=== PATIENT | female | born 1960 | race Caucasian/White ===

== ENCOUNTER 2019-08-25 13:08 | Observation (INO) | payer BC, SELFPAY ==
[2019-08-25] VITALS (53 sets, daily range): BP systolic 103–192; BP diastolic 65–165; PULSE 75–106; RESP 12–27; TEMP 36.6–37.6; O2SAT 95–100
--- NOTE | 2019-08-25 13:16 | DI.RAD_ITS ---
EXAM: XR CHEST 2V PA LATERAL CLINICAL HISTORY: Left-sided weakness, QUIÑONES TECHNIQUE: 2D digital imaging was performed. COMPARISON: No exams were available for comparison FINDINGS: MEDIASTINUM: Normal. HEART: Normal. PULMONARY VASCULATURE: Normal. LUNGS: Clear. PLEURAL SPACE: No pleural effusion or pneumothorax. BONE:Normal. OTHER FINDINGS:Normal. IMPRESSION: No acute pulmonary findings. DATA REPOSITORY: RADIATION DOSE DELIVERED:
--- NOTE | 2019-08-25 13:16 | DI.CT_ITS ---
EXAM: CT BRAIN CTA CLINICAL HISTORY: Right-sided head, and neck numbness. TECHNIQUE: Imaging Protocol: Axial CT angiography was performed with multi-slice acquisition and mu lti-planar and/or 3D reconstructions. CONTRAST MATERIAL: Intravenous: Omnipaque 350 Contrast volume:structured data in ml COMPARISON: No exams were available for comparison FINDINGS: CT Head W/O: Ventricles and Extra axial spaces: Normal in size and morphology for the patient's age. Hemorrhage: None. Cerebral parenchyma: Normal. Midline shift: None. Brainstem/Cerebellum: Normal. Calvarium: Normal. Visualized Paranasal sinuses/Mastoids: Clear. Soft Tissues: Unremarkable. CTA Brain W: Internal Carotid Arteries: Petrous: Normal. Cavernous: Normal. Cerebral: Normal. Middle Cerebral Arteries: Right: No aneurysm, occlusion or significant stenosis. Left: No aneurysm, occlusion or significant stenosis. Anterior Cerebral Arteries: Right: No aneurysm, occlusion or significant stenosis. Left: No aneurysm, occlusion or significant stenosis. Posterior cerebral Arteries: Right: No aneurysm, occlusion or significant stenosis. Left: No aneurysm, occlusion or significant stenosis. Vertebral Arteries: Right: No aneurysm, occlusion or significant stenosis. Left: No aneurysm, occlusion or significant stenosis. There is a dominant left vertebral artery. Basilar Artery: No aneurysm, occlusion or significant stenosis. IMPRESSION: 1. Normal CTA examination of the [place]. 2. Unremarkable noncontrast CT Head. 3. Findings were discussed with the emergency department on the date of the examination. RADIATION DOSE DELIVERED: 850.65mGy.cm Total DLP DATA REPOSITORY: All CT scans at this facility are submitted to the National Radiology Data Registry (NRDR) Dose Index Registry (DIR) with the [employer] (ACR). RADIATION OPTIMIZATION: All CT scans at this facility use at least one of these dose optimization te chniques: automated exposure control; mA and/or kV adjustment per patient size (includes targeted exa ms where dose is matched to clinical indication); or iterative reconstruction.
--- NOTE | 2019-08-25 13:29 | ED.GENADUL_ITS ---
Discharge Plan Disposition Patient Disposition: HOME Condition: Stable Discharge Details Chief Complaint: CVA/TIA Clinical Impression: Facial numbness, Hypertension Admit Date/Time: 08/25/19 16:54 Admit Provider: Prerna Truong Attending Provider: Prerna Truong Primary Care Provider: Laura Brink ED Provider: Vero Hull Hospital Course Hospital Course: Ms Baig is a 59 year old female with PMHx of unprovoked DVT in the 80's, no longer on anticoagulation, as well as hypertension (not on medications) and palpitations, who likely also has an underlying anxiety disorder, who was observed on [facility] hospitalist service from 08/25/2019 until 08/26/2019 after having presented to ER with left facial numbness which started during exercises but happened on and off during rest as well. Her BP was 192/85 at the time of presentation, but normalized without intervention. She ruled out for acute coronary syndrome, and her workup ruled out acute CVA. It is plausible that this was hypertensive encephalopathy, but because of the side of the of the symptoms, an outpatient stress test would be prudent and is being ordered on discharge. Lyme /tick panel is pending on discharge for her to follow up with PCP. She is also going home with a cardiac event recorder due to complaint of palpitations. Her telemetry has been negative for arrhythmias for the last 24 hours. Her lipids are at goal. She does have prediabetes, for which she is receiving educational information about dietary management and should follow up with her PCP. She is advised to follow a low salt diet, practice relaxation techniques such as meditation and consider seeking counseling help. She is being referred to [facility] neurology per her request. She ruled out for COVID-19 with a negative nasopharyngeal swab. She is medically stable for discharge home today. Discharge Data Discharge Date/Time-TO BE ENTERED AT DEPARTURE: 08/25/19 19:53 Medical Decision Making <Vero Hull - Last Filed: 08/26/19 17:14> 59-year-old female presents with a chief complaint of left sided numbness and neck numbness which began prior to arrival while gardening. Patient denies headache, no blurry vision, no diplopia, no weakness or numbness in extremities. Denies any chest pain, shortness of breath, cough. On initial exam gross motor is intact, no focal neuro deficits. Patient is hypertensive upon arrival at 192/85 pulse 106, she has noted increased blood pressure over the last few days. Surgical history includes section, colonoscopy. Patient does take daily aspirin, green tea leaf extract multivitamin red yeast ,vitamin D. 1319: EKG was reviewed by [Laura Holden MD] ER attending, no STEMI, sinus rhythm within normal limits, no ectopy sinus tachycardia rate of 99 HI interval 148 QT/QTc 320/411. No old to review. 1457: Patient reevaluation, patient states that when she got up to the bathroom sat back down she did have a little bit of the numbness onto the left side of her head and neck. CT CTA shows no significant vascular stenosis, occlusion, aneurysm, no mass no hemorrhage,. There is a dominant left vertebral artery. At this time patient has been mostly ruled out for CVA, or other brain injury. Neurologist on-call paged here at [facility]. Will run by CT and work-up the case details with neurologist on-call. Plan is to have patient follow-up outpatient with neurology and PCP. Patient does have an appointment on Friday with [facility]. 1525: Have not heard back from neurology, Neuro @ [facility] consulted for follow up and to discuss patients case. 1556: Spoke with Dr. Bowles with neurology at [facility], transfer center states there is no bed availability at this time. Discussed case in details with Dr. Bowles. Will attempt to have patient admitted here speak with our neurologist, and our hospitalist. 1539: Spoke with Racheal Mahoney with neurology who recommends CTA of neck to rule out stenosis and admission to rule out TIA and further observation. Will contact hospitalist. 1613: Spoke with Dr. Truong regarding patient case in details she would like to get CTA of neck results back first before excepting patient, if CTA neck is wi thin normal limits she agrees to accept patient for admission. Patient is currently in diagnostic imaging at this time. PROCEDURE INFORMATION: Exam: CT Angiography Neck With Contrast Exam date and time: 08/25/2019 3:39 PM COMPARISON: CT BRAIN CTA 08/25/2019 1:39 PM FINDINGS: Right common carotid artery: No significant stenosis. No dissection or occlusion. Right internal carotid artery: Atherosclerotic plaques involving the proximal extracranial right internal carotid artery without evidence of hemodynamically significant stenosis (0% stenosis by NASCET criteria). Right external carotid artery: No occlusion or significant stenosis. Right vertebral artery: No significant stenosis. No dissection or occlusion. Left common carotid artery: No significant stenosis. No dissection or occlusion. Left internal carotid artery: Atherosclerotic plaques involving the proximal extracranial left internal carotid artery without evidence of hemodynamically significant stenosis (0% stenosis by NASCET criteria). Left external carotid artery: No occlusion or significant stenosis. Left vertebral artery: No significant stenosis. No dissection or occlusion. Thyroid: Subcentimeter low-density nodules in the thyroid gland, to which no further follow-up is necessary. Bones/joints: No acute fracture. Soft tissues: Unremarkable. IMPRESSION: 1. No occlusion or significant stenosis in the arteries of the neck. 2. Other chronic findings, as above. 1645: Hospitalist paged. CTA neck noted above. Patient is complaining of worsening numbness to the left side of her head and around her mouth into her right eye. 1651: Spoke with Dr. Truong hospitalist who agrees to admit patient for observation. And TIA work-up. <Laura Holden DO - Last Filed: 08/26/19 09:13> Patient was not seen or evaluated by me. She was admitted to the hospitalist. HPI <Vero Hull - Last Filed: 08/26/19 17:14> General Mode of arrival: wheelchair . Date/Time Provider Initiated Documentation: 08/25/19 13:16 . Limitations to Documentation: physical limitation . Information obtained by: patient . HPI Narrative: 59-year-old female presents with a chief complaint of left sided numbness and neck numbness which began prior to arrival while gardening. Patient denies headache, no blurry vision, no diplopia, no weakness or numbness in extremities. Denies any chest pain, shortness of breath, cough. On initial exam gross motor is intact, no focal neuro deficits. Patient is hypertensive upon arrival at 192/85 pulse 106, she has noted increased blood pressure over the last few days. Surgical history includes section, colonoscopy. Patient does take daily aspirin, green tea leaf extract multivitamin red yeast ,vitamin D. Related Data Home Medications Medication Instructions Recorded Confirmed Green Tea 1 ea PO DAILY 07/09/16 08/26/19 aspirin 81 mg PO DAILY tab 07/09/16 08/26/19 multivitamin [Daily Multi-Vitamin] 1 ea PO DAILY 07/09/16 08/26/19 red yeast rice 600 mg PO DAILY 07/09/16 08/26/19 vitamin E 200 unit PO DAILY 07/09/16 08/26/19 Allergies Allergy/AdvReac Type Severity Reaction Status Date / Time No Known Drug Allergies Allergy Unverified 08/25/19 13:18 General Stated Complaint: CVA/TIA SHAWNA: 2 Review of Systems <Vero Hull - Last Filed: 08/26/19 17:14> Narrative: Constitutional: Negative for weight loss, alert and oriented, well groomed, normal body habitus, appears comfortable. HEENT: Denies trauma, blurry vision, nasal discharge, sore throat, trouble swallowing. Chest: Denies chest pain, palpitations, irregular rhythm, positive history of hypertensive episodes over the last 3 days. Respiratory: Denies Shortness of breath, cough, hemoptysis. GI: Denies abdominal pain, nausea, vomiting, diarrhea, constipation. : Denies dysuria, hematuria, flank pain, rectal bleeding. Neuro: Denies dizziness, blurry vision, weakness, syncope, headache . Does report left-sided head and neck numbness. Hematologic: Denies easy bruising, intolerance to heat or cold, hair loss. All systems reviewed & are unremarkable except as noted in HPI and below PFSH <Vero Hull Last Filed: 08/26/19 17:14> Medical History (Updated 08/26/19 @ 16:56 by Prerna Truong MD) DVT (deep venous thrombosis) (Chronic) Hypertension (Chronic) Palpitations (Chronic) Surgical History (Updated 08/25/19 @ 19:30 by Prerna Truong MD) section Colonoscopy - IV Sedation (08/05/16) H/O right knee surgery (Acute) Family History (Updated 08/25/19 @ 19:31 by Prerna Truong MD) Mother Hypertension Breast cancer Uterine cancer Skin cancer DVT (deep venous thrombosis) Father Hypertension Diabetes Other Colon cancer Social History Smoking/Tobacco Use Status: Never Drug use: Never Exam <Vero Hull Last Filed: 08/26/19 17:14> Narrative Exam Narrative: Constitutional: Alert and oriented x3. Appears stated age. Normal body habitus. Head: Normocephalic, no trauma. Eyes: Pupils PERRLA, Red reflex noted, EOM's intact. Eyelids symmetrical without lesions, discharge, or swelling. ENT: Bilateral TM's WNL, External ear normal to inspection, no mastoid TTP, swelling, or erythema, Nasal turbinates WNL, no nasal discharge. Normal den tition, Posterior pharynx WNL, no exudate. Chest: RRR, Normal S1, S2, distal pulses intact. Resp: Lungs clear to auscultation bilaterally, no wheezes, rales, or rhonchi. Musculoskeletal: Normal gait, 5/5 strength to all four extremities. Skin: No suspicious rashes or lesions. Capillary refill less than 2 sec. Neurologic: Cranial nerves II-XII intact. Alert and oriented x 3. See neuro exam below. Hematologic/Lymphatic: No ecchymosis, no lymphadenopathy. Neuro General: patient alert, patient awake, patient oriented x3, tone normal and moves all extremities Cranial Nerves: CN's II-XI intact bilaterally, PERRL, EOM intact bilaterally, no nystagmus, facial strength normal, tongue midline, able to elevate shoulders bilaterally and symmetric palate elevation Cognition: normal cognition Speech: speech normal Motor: muscle tone normal throughout, strength 5/5 throughout and no movement abnormalities noted Course <Vero Hull - Last Filed: 08/26/19 17:14> Vital Signs Vital signs: Vital Signs Temperature 36.7 C 08/25/19 13:14 Pulse 106 H 08/25/19 13:14 Respiratory Rate 19 08/25/19 13:14 Blood Pressure 192/85 H 08/25/19 13:14 Pulse Oximetry 100 08/25/19 13:14 Temperature 36.7 C 08/25/19 13:14 Temperature Source Temporal Artery Scan 08/25/19 13:14 Pulse 106 H 08/25/19 13:14 Respiratory Rate 16 08/25/19 13:22 Respiratory Effort 08/25/19 13:22 Blood Pressure 192/85 H 08/25/19 13:14 Pulse Oximetry 100 08/25/19 13:14 Oxygen Delivery Method Room Air 08/25/19 13:14 Oxygen Flow Rate 0 08/25/19 13:14
[2019-08-25 13:32] LABS: Abs Immature Grans 0.02 k/cumm (0.0-0.09); Absolute Basophil Count 0.05 k/cumm (0.0-0.2); Absolute Eosinophil Count 0.12 k/cumm (0.0-0.7); Absolute Lymphocyte Count 2.85 k/cumm (1.2-3.4); Absolute Monocyte Count 0.64 k/cumm (0.11-0.7); Absolute Neutrophil Count 5.72 k/cumm (1.2-6.7); Basophils % 0.5; Eosinophils % 1.3; HCT 43.3 % (36.0-46.0); HGB 14.5 g/dL (12.0-15.5); Immature Grans % 0.2 %; Lymphocytes % 30.3; Mean Corp. HGB Concentration 33.5 g/dL (32.0-36.0); Mean Corpuscular Hemoglobin 31.6 pg (27.0-33.0); Mean Corpuscular Volume 94.3 fL (80-95); Mean Platelet Volume 9.7 fL (8.0-11.0); Monocytes % 6.8; Neutrophils % 60.9; Platelet Count 356 x1000/uL (130-400); RBC 4.59 m/cumm (4.00-5.20); RBC Distribution Width 12.7 % (11.7-14.6)
[2019-08-25 13:57] LABS: Bilirubin Negative (Negative); Blood Negative (Negative); Clarity Clear (Clear); Glucose Negative (Negative); Ketones Negative (Negative); Leukocyte Esterase Negative (Negative); Nitrite Negative (Negative); Specific Gravity <= 1.005 (1.005-1.025); Urobilinogen 0.2 EU/dL (Up TO 0.2); pH 5.5 (5-8)
[2019-08-25 13:57] LABS: ALT 24 U/L (14-59); AST 20 U/L (15-37); Alkaline Phosphatase 81 U/L (46-116); Anion Gap 11.9 mmol/L (3-11); BUN 15 mg/dL (7-18); Bilirubin, Total 0.5 mg/dL (0.2-1.0); CO2 25.1 mmol/L (21.0-32.0); CREATININE 0.97 mg/dL (0.55-1.02); Calcium 9.5 mg/dL (8.5-10.1); Chloride 99 mmol/L (98-107); Estimated GFR 58.78 (mL/min/1.73m2); Glucose 167 mg/dL (74-106); Magnesium 1.9 mg/dL (1.8-2.4); Potassium 3.2 mmol/L (3.5-5.1); Sodium 136 mmol/L (136-145); Total Protein 8.2 g/dL (6.4-8.2)
[2019-08-25 14:00] LABS: Troponin I < 0.05 ng/mL (<0.06)
[2019-08-25] MEDS: Omnipaque 350 MG/ML 100 ML BTL IV ×2 (14:50→16:26)
[2019-08-25] MEDS: Normal Saline 1,000 ML 1000 ML IV (15:24)
[2019-08-25] MEDS: Normal Saline Flush 10 ML SYR IVP ×2 (15:24→16:27)
[2019-08-25 15:45] LABS: TSH 1.19 uIU/mL (0.36-3.74)
--- NOTE | 2019-08-25 16:15 | DI.CT_ITS ---
EXAM: CT CAROTID NECK CTA CLINICAL HISTORY: R/O stenosis, left sided numbness TECHNIQUE: Imaging Protocol: Axial CT angiography was performed with multi-slice acquisition and mu lti-planar and/or 3D reconstructions. CONTRAST MATERIAL: Intravenous: Omnipaque 350 Contrast volume:85 mL COMPARISON: No exams were available for comparison FINDINGS: CTA Neck W: Common Carotid: Right: No aneurysm, occlusion or significant stenosis. Left: No aneurysm, occlusion or significant stenosis. External Carotid: Right: No aneurysm, occlusion or significant stenosis. Left: No aneurysm, occlusion or significant stenosis. Internal Carotid: Right: No aneurysm, occlusion or significant stenosis. Mild atherosclerosis in the proximal internal carotid artery. Left: No aneurysm, occlusion or significant stenosis. Mild atherosclerosis in the proximal internal carotid artery. Vertebral Artery: Right: No aneurysm, occlusion or significant stenosis. Left: No aneurysm, occlusion or significant stenosis. Lung Apices: Normal. Bones: Mild degenerative changes in the cervical spine. Soft Tissues: Normal. IMPRESSION: 1. No occlusion or significant stenosis in the arteries of the neck. RADIATION DOSE DELIVERED: 254.33mGy.cm Total DLP 254.33mGy.cm Total DLP DATA REPOSITORY: All CT scans at this facility are submitted to the National Radiology Data Registry (NRDR) Dose Index Registry (DIR) with the [employer] (ACR). RADIATION OPTIMIZATION: All CT scans at this facility use at least one of these dose optimization te chniques: automated exposure control; mA and/or kV adjustment per patient size (includes targeted exa ms where dose is matched to clinical indication); or iterative reconstruction.
[2019-08-25] MEDS: Normal Saline - Diluent 50 ML VIAL IV (16:27)
[2019-08-25] MEDS: Clopidogrel 300 MG TAB PO (16:38)
--- NOTE | 2019-08-25 16:39 | DI.VRAD_ITS ---
PROCEDURE INFORMATION: Exam: CT Angiography Neck With Contrast Exam date and time: 08/25/2019 3:39 PM Age: 59 years old Clinical indication: Other: R/O stenosis TECHNIQUE: Imaging protocol: Computed tomography angiography of the neck with intravenous contrast. 3D rendering: MIP and/or 3D reconstructed images were created by the technologist. Radiation optimization: All CT scans at this facility use at least one of these dose optimization techniques: automated exposure control; mA and/or kV adjustment per patient size (includes targeted exams where dose is matched to clinical indication); or iterative reconstruction. Contrast material: [id number]; Contrast volume: 85 ml; Contrast route: IV; COMPARISON: CT BRAIN CTA 08/25/2019 1:39 PM FINDINGS: Right common carotid artery: No significant stenosis. No dissection or occlusion. Right internal carotid artery: Atherosclerotic plaques involving the proximal extracranial right internal carotid artery without evidence of hemodynamically significant stenosis (0% stenosis by NASCET criteria). Right external carotid artery: No occlusion or significant stenosis. Right vertebral artery: No significant stenosis. No dissection or occlusion. Left common carotid artery: No significant stenosis. No dissection or occlusion. Left internal carotid artery: Atherosclerotic plaques involving the proximal extracranial left internal carotid artery without evidence of hemodynamically significant stenosis (0% stenosis by NASCET criteria). Left external carotid artery: No occlusion or significant stenosis. Left vertebral artery: No significant stenosis. No dissection or occlusion. Thyroid: Subcentimeter low-density nodules in the thyroid gland, to which no further follow-up is necessary. Bones/joints: No acute fracture. Soft tissues: Unremarkable. IMPRESSION: 1. No occlusion or significant stenosis in the arteries of the neck. 2. Other chronic findings, as above. REFERENCES: NASCET CRITERIA. The degree of internal carotid artery stenosis is based on NASCET criteria. Normal is no stenosis. Mild is less than 50% stenosis. Moderate is 50-69% stenosis. Severe is 70% to 99% stenosis. Total occlusion is no detectable patent lumen. Dictated and Authenticated by: Rob Hunter MD. Ordering:JOSE ALEJANDRO Pham MD
[2019-08-25] MEDS: LORazepam 0.5 MG TAB PO (16:50)
[2019-08-25 17:50] LABS: Troponin I < 0.05 ng/mL (<0.06)
--- NOTE | 2019-08-25 18:19 | W.PM.HP.N ---
Date of service: 08/25/19 Assessment and Plan Assessment and plan (1) Facial numbness: Status: Acute Assessment and plan: CVA is a possibility as is hypertensive encephalopathy, atypical migraine, anxiety, complex partial sz. Obtain MRI of the brain in am as well as echo. Monitor on tele with neurochecks. Continue plavix. Check lipids. Permissive hypertension tonight. (2) Hypertensive urgency: Status: Acute Assessment and plan: Permissive hypertension tonight with prn IV lopressor being written for SBP>190. (3) Hypokalemia: Status: Acute Assessment and plan: Replete and recheck in am (4) Anxiety: Status: Chronic Assessment and plan: May be contributing to hypertension. Would not initiate the patient on any anxiolytics at this point unless she is in real distress, but may require ativan for MRI tomorrow. (5) Palpitations: Status: Acute Assessment and plan: While anxiety could be the explanation, we will monitor the patient on telemetry. I think she is interested in having a stress test as outpatient, which she can discuss with her PCP. I reassured her that we will check her cholesterol and, if needed, would go home with a heart monitor. (6) DVT prophylaxis: Status: Acute Assessment and plan: lovenox (7) Discharge planning issues: Status: Acute Assessment and plan: Full code Anticipate discharge home tomorrow History of Present Illness History of Present Illness Chief Complaint: facial numbness Narrative: Ms Baig is a 59 year old female with PMHx of HTN, DVT in 1979 (no longer on anticoagulation), and palpitations, who presented with L-sided head numbness since 12 pm today while vacuuming. It's been on and off ever since. Denies neck symptoms, UE/LE's. There may also be tingling associated with the sensation - the patient is not sure. She does not have a headache. The patient also felt dizzy and had palpitations when this first started. She had palpitations in the CT scan which she said really scared her. She states that she had to wear a heart monitor in the past for her palpitations. In the ED, she had a negative CT/CTA of the brain. CTA of the neck revealed no hemodynamically significant stenosis. The patient was loaded with plavix on recommendation of neurology, and we were asked to take over the care for further monitoring. While in ED, the patient was hypertensive to 192/85 with BP's of 179/74 prior to coming to medical surgical floor. The patient initially requested transfer to [facility], where there were no beds. She also requested transfer to [facility] initially, but now agrees to stay here for the workup and requests that she be transferred if necessary. The patient denies contact with anyone with COVID-19, though she endorses feeling short of breath and lightheaded whenever she wears a mask. Review of Systems Narrative: 12 systems reviewed. Pertinent positives and negatives are as per HPI. [facility] Medical History (Updated 08/25/19 @ 19:34 by Prerna Truong MD) DVT (deep venous thrombosis) (Chronic) Hypertension (Chronic) Palpitations (Acute) Surgical History (Updated 08/25/19 @ 19:30 by Prerna Truong MD) section Colonoscopy - IV Sedation (08/05/16) H/O right knee surgery (Acute) Family History (Updated 08/25/19 @ 19:31 by Prerna Truong MD) Mother Hypertension Breast cancer Uterine cancer Skin cancer DVT (deep venous thrombosis) Father Hypertension Diabetes Other Colon cancer Social History Smoking/Tobacco Use Status: Never Drug use: Never Meds Home Medications and Allergies Home Medications Medication Instructions Recorded Confirmed Type aspirin 81 mg PO DAILY tab 07/09/16 08/05/16 History green tea leaf extract [Green Tea] 1 ea PO DAILY 07/09/16 08/05/16 History multivitamin [Daily Multi-Vitamin] 1 ea PO DAILY 07/09/16 08/05/16 History red yeast rice 600 mg PO DAILY 07/09/16 08/05/16 History vitamin E 200 unit PO DAILY 07/09/16 08/05/16 History Allergies Allergy/AdvReac Type Severity Reaction Status Date / Time No Known Drug Allergies Allergy Unverified 08/25/19 13:18 Exam Narrative Exam Narrative: General: Well nourished, well developed Anxious middle-aged female, A&Ox3, pleasant, Neurological: A&OX3, CN II - XII intact, no focal deficits, sensation intact, +1 DTRs B, 5/5 strenght throughout Psychiatric: anxious Skin: visible skin intact HEENT: Atraumatic, normocephalic, EOMI, dry MM, clear oropharynx Cardiovascular: RRR, no m/r/g, not tachycardic Lungs: CTAB Gastrointestinal: soft, nontender, nondistended Genitourinary: deferred Extremities: no e/c/c BLE's Results Imaging Additional studies: CXR; No acute pulmonary findings. Head CT/CTA: 1. Normal CTA examination of the [place] of [place]. 2. Unremarkable noncontrast CT Head. CTA neck: 1. No occlusion or significant stenosis in the arteries of the neck. 2. Other chronic findings, as above. EKG: ST, HR 99, no acute ischemia, nonspecific ST-T changes throughout Labs Result diagrams: 08/25/19 13:20 08/25/19 13:20 Labs: Laboratory Results - last 24 hr 08/25/19 08/25/19 08/25/19 13:20 13:20 13:20 WBC 9.40 RBC 4.59 Hgb 14.5 Hct 43.3 MCV 94.3 MCH 31.6 MCHC 33.5 RDW 12.7 Plt Count 356 MPV 9.7 Immature Gran % 0.2 Neutrophils % 60.9 Lymphocytes % 30.3 Monocytes % 6.8 Eosinophils % 1.3 Basophils % 0.5 Absolute Neutrophils 5.72 Absolute Lymphocytes 2.85 Absolute Monocytes 0.64 Absolute Eosinophils 0.12 Absolute Basophils 0.05 Sodium 136 Potassium 3.2 L Chloride 99 Carbon Dioxide 25.1 Anion Gap 11.9 H BUN 15 Creatinine 0.97 Estimated GFR/1.73 m2 58.78 Glucose 167 H Calcium 9.5 Magnesium 1.9 Total Bilirubin 0.5 AST 20 ALT 24 Alkaline Phosphatase 81 Troponin I < 0.05 Total Protein 8.2 Albumin 4.0 TSH 1.19 Urine Color Urine Clarity Urine pH Ur Specific Fay Urine Protein Urine Ketones Urine Blood Urine Nitrite Urine Bilirubin Urine Urobilinogen Ur Leukocyte Esterase Urine Glucose 08/25/19 08/25/19 08/25/19 13:30 16:16 17:20 WBC RBC Hgb Hct MCV MCH MCHC RDW Plt Count MPV Immature Gran % Neutrophils % Lymphocytes % Monocytes % Eosinophils % Basophils % Absolute Neutrophils Absolute Lymphocytes Absolute Monocytes Absolute Eosinophils Absolute Basophils Sodium Potassium Chloride Carbon Dioxide Anion Gap BUN Creatinine Estimated GFR/1.73 m2 Glucose Calcium Magnesium Total Bilirubin AST ALT Alkaline Phosphatase Troponin I Cancelled < 0.05 Total Protein Albumin TSH Urine Color Yellow Urine Clarity Clear Urine pH 5.5 Ur Specific Fay <= 1.005 Urine Protein Negative Urine Ketones Negative Urine Blood Negative Urine Nitrite Negative Urine Bilirubin Negative Urine Urobilinogen 0.2 Ur Leukocyte Esterase Negative Urine Glucose Negative Last Vital Signs Temp 36.7 C 08/25/19 16:30 Pulse 93 H 08/25/19 16:49 Resp 16 08/25/19 16:49 BP 179/74 H 08/25/19 16:49 Pulse Ox 100 08/25/19 16:49 COVID-19 Screening In the past 14 days, have you traveled outside of [place] or [place]?: NO Had IN PERSON contact w/suspected or confirmed C-19 person: No
[2019-08-25] MEDS: Potassium Chloride 20 MEQ TABCR 40 MEQ PO (19:19)
[2019-08-25] MEDS: Enoxaparin 40 MG/0.4 ML SYR SC (20:36)
[2019-08-25] MEDS: Atorvastatin 40 MG TAB PO (20:36)
[2019-08-25] MEDS: Normal Saline 1,000 ML 50 ML IV (20:37)
[2019-08-26 03:31] VITALS: BP 130/77; PULSE 75; RESP 19; TEMP 37.1; O2SAT 98
[2019-08-26 07:08] LABS: Abs Immature Grans 0.01 k/cumm (0.0-0.09); Absolute Basophil Count 0.04 k/cumm (0.0-0.2); Absolute Eosinophil Count 0.14 k/cumm (0.0-0.7); Absolute Monocyte Count 0.67 k/cumm (0.11-0.7); Absolute Neutrophil Count 5.26 k/cumm (1.2-6.7); Basophils % 0.5; Eosinophils % 1.7; HCT 40.7 % (36.0-46.0); HGB 13.2 g/dL (12.0-15.5); Immature Grans % 0.1 %; Lymphocytes % 27.3; Mean Corp. HGB Concentration 32.4 g/dL (32.0-36.0); Mean Corpuscular Hemoglobin 30.9 pg (27.0-33.0); Mean Corpuscular Volume 95.3 fL (80-95); Mean Platelet Volume 9.8 fL (8.0-11.0); Neutrophils % 62.4; Platelet Count 334 x1000/uL (130-400); RBC 4.27 m/cumm (4.00-5.20); White Blood Cell Count 8.42 k/cumm (4.4-10.8)
[2019-08-26 07:10] VITALS: BP 121/66; PULSE 81; RESP 18; TEMP 36.7; O2SAT 98
[2019-08-26 07:51] LABS: Anion Gap 8.1 mmol/L (3-11); BUN 14 mg/dL (7-18); CO2 25.9 mmol/L (21.0-32.0); CREATININE 0.84 mg/dL (0.55-1.02); Calcium 9.1 mg/dL (8.5-10.1); Calculated LDL 77 mg/dL (<100); Chloride 109 mmol/L (98-107); Cholesterol 149 mg/dL (<200); Glucose 97 mg/dL (74-106); HDL Cholesterol 62 mg/dL (40-60); Magnesium 1.9 mg/dL (1.8-2.4); Potassium 3.8 mmol/L (3.5-5.1); Sodium 143 mmol/L (136-145); Triglyceride 54 mg/dL (<150); Vitamin B12 1854 pg/mL (193-986)
--- NOTE | 2019-08-26 08:00 | DI.US_ITS ---
APPROVED REPORT EXAM: Comprehensive 2D, Doppler, and color-flow Echocardiogram Patient Location: In-Patient Room/Bed: 230 Indications: Suspected CVA Other Information Study Quality: Good Conclusion Left Ventricle : The left ventricle is normal size. The left ventricular systolic function is normal. The left ventricular ejection fraction is within the normal range. There is normal left ventricular wall thickness. There is normal LV segmental wall motion. The left ventricular diastolic function is normal. LVEF is 55%. Right Ventricle : The right ventricle is normal size. The right ventricular systolic function is norm al. The RVSP is 20.2 mmHg Atria : The left atrium size is normal. The right atrium size is normal. Valves: There are no hemodynamically significant valvular lesions. Please see remainder of study for additional details. There is no prior echocardiogram available for comparison. Wall motion Left Ventricle The left ventricle is normal size. The left ventricular systolic function is normal. The left ventric ular ejection fraction is within the normal range. There is normal left ventricular wall thickness. T here is normal LV segmental wall motion. The left ventricular diastolic function is normal. There is no ventricular septal defect visualized. LVEF is 55%. Right Ventricle The right ventricle is normal size. The right ventricular systolic function is normal. The RVSP is 20 .2 mmHg Atria The left atrium size is normal. The right atrium size is normal. The interatrial septum is intact wit h no evidence for an atrial septal defect. Aortic Valve The Aortic valve is sclerotic. Aortic valve is trileaflet. There is no aortic valvular stenosis. No a ortic regurgitation is present. Mitral Valve There is mitral annular calcification. No evidence of mitral valve stenosis. Trace to mild mitral reg urgitation. Tricuspid Valve The tricuspid valve is normal in structure. There is no tricuspid valve stenosis. Mild tricuspid regu rgitation. Pulmonic Valve The pulmonary valve is normal in structure. There is no pulmonic valvular stenosis. There is no pulmo uday valvular regurgitation. Great Vessels The aortic root is normal in size. The ascending aorta is normal in size. IVC is normal in size and c ollapses >50% with inspiration. Pericardium Trivial pericardial effusion. 2D Dimensions IVSD d PLAX 0.98 cm F: 0.6-1.0 LV Vol A2C d MOD 71.5 mL LVPW d PLAX 0.94 cm F: 0.6 - 1.0 LV Vol A4C d MOD 72.1 mL LVID d PLAX 4.23 cm F: 3.8 - 5.2 LA vol/ BSA A2C s A-L 25.7 mL/m2 LVDs 2.45 cm F: 2.2 - 3.5 LA vol/ BSA A4C s A-L 18.0 mL/m2 Ao Root d 2.50 cm F: 2.7 - 3.3 LA Vol/ BSA Biplane s A-L 21.6 mL/m2 RA Area A4C 12.13 cm2 LA Area A4C s MOD 12.94 cm2 RA Vol/ BSA A4C s A-L 16.2 mL/m2 LA Area A2C s MOD 15.56 cm2 Ao Asc Diam d 2.74 cm F: 2.3 - 3.1 LV EF A4C MOD 54.6 % LV EF Teichholz 72.4 % LV EF A2C MOD 54.9 % LVEF (Linda's) 53.90 % F: 54 - 74 LV EF Biplane MOD 53.9 % LV Volume 58.16 mL F: 46 - 106 SV 39.13 mL LV Volume Index 35.03 mL/m2 F: 29 - 61 SV Index 23.57 mL/m2 LV Vol Biplane MOD 72.6 mL FS 41.20 % M-Mode TAPSE 1.97 cm (M/F) >1.7 LV Diastology MV E' medial 0.095 (>0.07 m/s) E/A Ratio 1.1 LV E/e MED 7.50 (<14) MV E Vmax 0.72 (0.4-1.3 m/s) MV E' lateral 0.103 (>0.1 m/s) MV A Vmax 0.65 (0.4-1.3 m/s) LV E/e LAT 6.95 (<14) MV E/A Ratio 1.06 MV E/E' medial 7.50 MV E/E' lateral 6.96 Aortic Valve LVOT Vmax 1.04 m/s LVOT Mean Michael. 0.62 m/s LVOT Peak Grad 4.3 mmHg LVOT Mean Grad 1.9 mmHg LVOT VTI 0.201 m AoV Vmax 1.52 m/s Velocity Ratio 0.68 AoV Mean Michael. 1.08 m/s AoV Peak Grad 9.2 mmHg AoV Mean Grad 5.2 mmHg AoV VTI 0.278 m Mitral Valve MV DT 189 (160-240 msec) MV PHT 55 msec MV Area PHT 4.01 cm2 Pulmonary Valve PV Vmax 0.75 (0.5-1.5 m/s) RVOT Peak Gr. 1.55 mmHg PV Peak Grad 2.3 mmHg RVOT Mean Gr. 1.00 mmHg PV Mean Grad 1.6 mmHg RVOT VTI 0.137 m PV VTI 0.155 m RVOT Vmax 0.62 m/s Tricuspid Valve TR Peak Grad 17.1 mmHg TR Vmax 2.07 m/s RA Pressure 3.00 mmHg RVSP (TR) 20.2 mmHg
--- NOTE | 2019-08-26 08:00 | DI.MRI_ITS ---
EXAM: MR BRAIN WO CLINICAL HISTORY: suspected CVA, LT SIDED NUMBNESS TECHNIQUE: Multiplanar multisequence MRI of the brain was performed. COMPARISON: CT CT BRAIN CTA from 08/25/2019 FINDINGS: VENTRICLES AND EXTRA AXIAL SPACES: Normal in size and morphology for the patient's age. MIDLINE SHIFT: None. CEREBRAL PARENCHYMA: No focus of restricted diffusion to suggest acute infarct. No space-occupying le kim identified. Scattered hyperintense foci in the white matter on the T2 and FLAIR images most sugg estive of early small vessel ischemic disease. HEMORRHAGE: None. BRAINSTEM/CEREBELLUM: Normal. CALVARIUM: Normal. VISUALIZED PARANASAL SINUSES/MASTOIDS:Clear. PITUITARY GLAND: Unremarkable. OTHER FINDINGS: None. IMPRESSION: No evidence to suggest an acute infarct. DATA REPOSITORY:
--- NOTE | 2019-08-26 08:00 | DI.MRI_ITS ---
EXAM: MR ANGIO BRAIN WO CLINICAL HISTORY: suspected CVA, LT SIDED NUMBNESS. TECHNIQUE: Multiplanar multisequence MRA of the brain was performed. COMPARISON: CT angiography of the head and neck 08/25/2019. FINDINGS: Carotid Arteries: No aneurysm, occlusion or significant stenosis. Anterior Cerebral Arteries: Right: No aneurysm, occlusion or significant stenosis. Left: No aneurysm, occlusion or significant stenosis. Middle Cerebral Arteries: Right: No aneurysm, occlusion or significant stenosis. Left: No aneurysm, occlusion or significant stenosis. Posterior Cerebral Arteries: Right: No aneurysm, occlusion or significant stenosis. Arises from the posterior communicating arter y. Left: No aneurysm, occlusion or significant stenosis. Arises from the posterior communicating artery . Vertebral Arteries: Right: No aneurysm, occlusion or significant stenosis. Left: No aneurysm, occlusion or significant stenosis. There is a dominant left vertebral artery. Basilar Artery: No aneurysm, occlusion or significant stenosis. IMPRESSION: Normal MRA examination of the [place] of [place]. DATA REPOSITORY:
--- NOTE | 2019-08-26 08:45 | PDOC.CMIN ---
- If Service Date Differs Date of service: 08/26/19 Time of Service: 08:46 Care Management Initial Assess REASON FOR HOSPITALIZATION:: facial numbness PAST MEDICAL HISTORY/PAST SURGICAL HISTORY:: Medical History (Updated 08/25/19 @ 19:34 by Prerna Truong MD). DVT (deep venous thrombosis) (Chronic). Hypertension (Chronic). Palpitations (Acute). Surgical History (Updated 08/25/19 @ 19:30 by Prerna Truong MD). section. Colonoscopy - IV Sedation (08/05/16). H/O right knee surgery (Acute) PREVIOUS FUNCTIONAL STATUS/SOCIAL/FAMILY SUPPORTS:: Waleska lives with her in a single family home in [place], [place]. They have 2 adult sons who both live out of [facility]. 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 She is independent with ADLs, driving and all activities. She does not receive any community services and does not need or use any assistive devices. CURRENT FUNCTIONAL STATUS:: Waleska was sitting up in bed when CM met with her. She has been out of the room most of the day having testing done.She described the symptoms that she experienced yesterday that brought her to the hospital. She stated that she has never had anything like it before, although she has had some intermittent hypertensiopn. Today her vital signs are stable with a blood pressure of 126/76 and a heartrate in the 80's. She stated that she feels much better than yesterday, although she did have some numbness on the left side of her head again this morning. ADVANCE DIRECTIVES:: None on file. Provided with a blank copy of the [facility] AD forms by CM. Has patient been provided with info about the portal/API?: Yes Did the patient sign up for the portal?: No (considering) CODE STATUS:: Full Code INSURANCE COVERAGE / FINANCIAL ISSUES:: [employer] CURRENT HOME/COMMUNITY SERVICES/EQUIPMENT:: NONE PRIMARY CARE PHYSICIAN:: Laura Brink POTENTIAL DISCHARGE NEEDS:: Follow up with PCP and discharge plan of care PATIENT/FAMILY EDUCATION NEEDS:: Discharge plan, limitations, follow up plan, Ask Me Three TRANSPORTATION:: via [employer] vehicle with family PLAN:: Waleska will likely be discharged home with no services. She will follow up with her PCP and discharge plan of care and transport with her . CM will continue to support patient, family and discharge considerations.
[2019-08-26] MEDS: Clopidogrel 75 MG TAB PO (09:10)
[2019-08-26] MEDS: Multivitamin TAB 1 TAB PO (09:11)
[2019-08-26] MEDS: LORazepam 2 MG/ML VIAL 1 MG IVP (10:02)
[2019-08-26] MEDS: Normal Saline Flush 10 ML SYR IVP (10:03)
[2019-08-26 14:00] VITALS: BP 126/83; PULSE 84; RESP 18; TEMP 36.8; O2SAT 96
[2019-08-26 14:14] LABS: COVID-19 RT-PCR UVMMC Result Negative (Negative)
--- NOTE | 2019-08-26 16:41 | W.PM.DS.N ---
Date of service: 08/26/19 Time of Service: 16:41 DS: Diagnosis Discharge Diagnosis (1) Hypertensive encephalopathy: Status: Resolved (2) Facial numbness: Status: Acute Asessment and Plan: CVA ruled out As the symptoms are on the left, an outpatient stress test is being ordered. (3) Hypertensive urgency: Status: Resolved Asessment and Plan: Resolved without medications (4) Hypokalemia: Status: Resolved (5) Anxiety: Status: Chronic (6) Palpitations: Status: Chronic Asessment and Plan: being discharged with a cardiac event recorder (7) Prediabetes: Status: Chronic Asessment and Plan: new diagnosis. 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 Her BP was 192/85 at the time of presentation, but normalized without intervention. She ruled out for acute coronary syndrome, and her workup ruled out acute CVA. It is plausible that this was hypertensive encephalopathy, but because of the side of the of the symptoms, an outpatient stress test would be prudent and is being ordered on discharge. Lyme /tick panel is pending on discharge for her to follow up with PCP. She is also going home with a cardiac event recorder due to complaint of palpitations. Her telemetry has been negative for arrhythmias for the last 24 hours. Her lipids are at goal. She does have prediabetes, for which she is receiving educational information about dietary management and should follow up with her PCP. She is advised to follow a low salt diet, practice relaxation techniques such as meditation and consider seeking counseling help. She is being referred to [facility] neurology per her request. She ruled out for COVID-19 with a negative nasopharyngeal swab. She is medically stable for discharge home today. Home Meds and New Rx's Prescriptions: Continued multivitamin [Daily Multi-Vitamin] 1 EACH tablet 1 ea PO DAILY RF: 0 aspirin 81 MG tablet,delayed release (DR/EC) 81 mg PO DAILY RF: 0 Green Tea 1 EACH capsule 1 ea PO DAILY RF: 0 red yeast rice 600 MG capsule 600 mg PO DAILY RF: 0 vitamin E 200 UNIT capsule 200 unit PO DAILY RF: 0 Discharge Instructions Instructions: Basic Carbohydrate Counting (DC), Meal Planning with Diabetes Exchanges (DC), Chronic Hypertension (DC), Low-Sodium Diet (GEN), Prediabetes (DC), Cardiac Stress Test (DC) Additional Instructions: Return to the hospital with any fever, bleeding, chest pain, shortness of breath, or any new neurological symptoms. Follow up with your PCP as scheduled. Follow up with [facility] neurology. Follow up for your stress test. Take your blood pressures daily and keep a log. Contact your PCP if you notice systolic (top) blood pressure number of 180 or greater. Practice relaxation techniques, such as meditation. Avoid caffeine. You tested negative for COVID-19. Make sure to wear a mask when/if you are not going to be able to maintain 6 foot distance in public spaces and wash your hands frequently. Stand Alone Forms: Nursing Discharge Form Referrals: NEUROLOGY,[facility] [OTHER] - (Please call to follow up) Laura Brink [Primary Care Provider] - (Please call to follow up) Activity:: Activity as Tolerated Equipment/Supplies:: No Equipment Needed Diet:: Diabetic low sodium Discharge Orders Discharge Orders: Discharge Order (Routine); Ordered 08/26/19 Ordered By: Prerna Truong Other Ambulatory Orders: NM MPI rest & stress grp (Routine) Timeframe: 2 Weeks Facility: [facility] - Location: CARDIAC LAB Ordered By: Prerna Truong Cardiac Event Recorder (Outpt) (ONCE) Timeframe: [id number] Facility: [facility] - Location: Respiratory Therapy Ordered By: Prerna A Alexi DS: Summary Status at Discharge Functional status at discharge: independent ambulation Overall status at discharge: patient is progressing back to baseline Mental Status: mental status grossly normal Speech and Movement: speech and movement normal Mood: congruent mood and anxious mood Affect: normal affect Exam Narrative Exam Narrative: General: Well nourished, well developed Anxious middle-aged female, A&Ox3, pleasant, Neurological: A&OX3, CN II - XII intact, no focal deficits, sensation intact on exam, +1 DTRs B, 5/5 strength throughout Psychiatric: anxious Skin: visible skin intact HEENT: Atraumatic, normocephalic, EOMI, dry MM, clear oropharynx Cardiovascular: RRR, no m/r/g, not tachycardic Lungs: CTAB Gastrointestinal: soft, nontender, nondistended Extremities: no e/c/c BLE's Psych Mental Status: mental status grossly normal Speech and Movement: speech and movement normal Mood: congruent mood and anxious mood Affect: normal affect DS: Data Vitals/I&O Vitals and I&O: Vital Signs Temperature 36.8 C 08/26/19 14:00 Temperature Source Tympanic 08/26/19 14:00 Pulse 84 08/26/19 14:00 Pulse Rhythm Regular 08/26/19 09:06 Pulse 85 08/25/19 19:30 Respiratory Rate 18 08/26/19 14:00 Respiratory Effort Non-Labored 08/26/19 09:06 Respiratory Depth Normal 08/26/19 09:06 Respiratory Pattern Normal 08/26/19 09:06 Blood Pressure 126/83 08/26/19 14:00 Blood Pressure Mean 100 08/25/19 19:16 Pulse Oximetry 96 08/26/19 14:00 Oxygen Delivery Method Room Air 08/26/19 14:00 Oxygen Flow Rate 0 08/26/19 14:00 Pain Level 0 08/26/19 14:00 Comment 08/25/19 20:09 Intake & Output 08/25/19 08/26/19 08/26/19 23:59 11:59 23:59 Intake Total 1000 / 1000 660 / 1140 480 / 1140 Output Total 900 / 900 3150 / 3150 Balance 100 / 100 -2489 Weight 62.1 kg 63.3 kg Intake: IV 1000 / 1000 Oral 660 / 1140 480 / 1140 Output: Urine 900 / 900 3150 / 3150 Other: Urine Color Yellow Yellow Urine Appearance Clear Clear Urine Odor Normal Voiding Methods Toilet Data Completed and Pending Completed studies during hospitalization [Text1]: CXR 08/25/2019: No acute pulmonary findings. CT/CTA head 08/25/2019: 1. Normal CTA examination of the [place]. 2. Unremarkable noncontrast CT Head. CTA neck 08/25/2019: 1. No occlusion or significant stenosis in the arteries of the neck. MRI brain: No evidence to suggest an acute infarct. MRA brain: Normal MRA examination of the [place]. Echo: Left Ventricle : The left ventricle is normal size. The left ventricular systolic function is normal. The left ventricular ejection fraction is within the normal range. There is normal left ventricular wall thickness. There is normal LV segmental wall motion. The left ventricular diastolic function is normal. LVEF is 55%. Right Ventricle : The right ventricle is normal size. The right ventricular systolic function is normal. The RVSP is 20.2 mmHg Atria : The left atrium size is normal. The right atrium size is normal. Valves: There are no hemodynamically significant valvular lesions. Please see remainder of study for additional details. There is no prior echocardiogram available for comparison. Pending studies at discharge: MPI for PCP to follow Cardiac event recorder for PCP to follow Tick/lyme panel Labs on day of discharge: Labs from last 24 hours 08/26/19 08/26/19 08/26/19 06:20 06:20 06:20 WBC 8.42 RBC 4.27 Hgb 13.2 Hct 40.7 MCV 95.3 H MCH 30.9 MCHC 32.4 RDW 13.0 Plt Count 334 MPV 9.8 Immature Gran % 0.1 Neutrophils % 62.4 Lymphocytes % 27.3 Monocytes % 8.0 Eosinophils % 1.7 Basophils % 0.5 Absolute Neutrophils 5.26 Absolute Lymphocytes 2.30 Absolute Monocytes 0.67 Absolute Eosinophils 0.14 Absolute Basophils 0.04 Sodium Potassium Chloride Carbon Dioxide Anion Gap BUN Creatinine Estimated GFR/1.73 m2 Glucose Hemoglobin A1c 6.0 H Calcium Magnesium Troponin I Triglycerides Total Cholesterol LDL Cholesterol, Calc HDL Cholesterol Vitamin B12 A.phagocytophil DNA PCR Pending B. divergens/MO-1 PCR Pending Babesia duncani (PCR) Pending Babesia microti DNA PCR Pending Borrelia (PCR) Pending Lyme Disease Antibody Pending COVID-19 PCR Nasopharyn COVID-19 PCR E.chaffeensis DNA (PCR) Pending E.ewingii/canis DNA PCR Pending E. muris-like DNA (PCR) Pending Ref Test Perform Site 08/26/19 08/25/19 08/25/19 06:20 19:20 17:20 WBC RBC Hgb Hct MCV MCH MCHC RDW Plt Count MPV Immature Gran % Neutrophils % Lymphocytes % Monocytes % Eosinophils % Basophils % Absolute Neutrophils Absolute Lymphocytes Absolute Monocytes Absolute Eosinophils Absolute Basophils Sodium 143 Potassium 3.8 Chloride 109 H Carbon Dioxide 25.9 Anion Gap 8.1 BUN 14 Creatinine 0.84 Estimated GFR/1.73 m2 >= 60.00 Glucose 97 D Hemoglobin A1c Calcium 9.1 Magnesium 1.9 Troponin I < 0.05 Triglycerides 54 Total Cholesterol 149 LDL Cholesterol, Calc 77 HDL Cholesterol 62 Vitamin B12 1854 H A.phagocytophil DNA PCR B. divergens/MO-1 PCR Babesia duncani (PCR) Babesia microti DNA PCR Borrelia (PCR) Lyme Disease Antibody COVID-19 PCR Negative Nasopharyn COVID-19 PCR Not Applicable E.chaffeensis DNA (PCR) E.ewingii/canis DNA PCR E. muris-like DNA (PCR) Ref Test Perform Site [facility] Medical History (Updated 08/26/19 @ 16:56 by Prerna Truong MD) DVT (deep venous thrombosis) (Chronic) Hypertension (Chronic) Palpitations (Chronic) Surgical History (Updated 08/25/19 @ 19:30 by Prerna Truong MD) section Colonoscopy - IV Sedation (08/05/16) H/O right knee surgery (Acute) Family History (Updated 08/25/19 @ 19:31 by Prerna Truong MD) Mother Hypertension Breast cancer Uterine cancer Skin cancer DVT (deep venous thrombosis) Father Hypertension Diabetes Other Colon cancer Social History Smoking/Tobacco Use Status: Never Drug use: Never
[2019-08-26] MEDS: Enoxaparin 40 MG/0.4 ML SYR SC (17:26)
[2019-08-27 10:13] LABS: Lyme Ab w Rflx to Lyme Confirm Negative (Negative)
[2019-08-30 19:22] LABS: Anaplasma phagocytophilum Negative (Negative); B. miyamotoi PCR Negative (Negative); Babesia divergens/MO-1 Negative (Negative); Babesia duncani Negative (Negative); Babesia microti Negative (Negative); Ehrlichia chaffeensis Negative (Negative); Ehrlichia ewingii/canis Negative (Negative); Ehrlichia muris eauclairensis Negative (Negative)
--- NOTE | 2019-09-27 11:31 | W.CARDEVENT ---
Date of service: 09/27/19 Time of Service: 11:31 Cardiac Event Recorder Cardiac Event Note: This was a 30-day cardiac event monitor which recorded from August 25 to September 24, 2019 Predominant rhythm was sinus. There was no atrial fibrillation Average heart rate was 81, minimum 58 and maximum 109 There were no significant atrial or ventricular dysrhythmias Patient symptoms of lightheadedness corresponded to sinus rhythm and sinus tachycardia, heart rates 80-114
== END 2019-08-26 18:38 | disposition home or self-care (01) ==
LOC: ER 17:18 → MS 19:57
PROVIDERS: Admitting Provider Internal Medicine; Emergency Provider Registered Nurse Emergency; PCP Nurse Practitioner; Visit Provider Internal Medicine
DX: I67.4 Hypertensive encephalopathy (principal); Z03.818 Encounter for observation for suspected exposure to other biological agents ruled out; R20.0 Anesthesia of skin; I16.0 Hypertensive urgency; I10 Essential (primary) hypertension; E87.6 Hypokalemia; F41.9 Anxiety disorder, unspecified; R00.2 Palpitations; R73.03 Prediabetes
CPT/HCPCS: 36415; 70496; 70498; 70544; 80048; 80053; 80061; 87798; 93005; 93270; 96360; 99217; 99220; 99285; J1650; U0003; 70551; 71046; 81003; 82607; 83036; 83735; 84443; 84484; 85025; 86618; 93010; 93306; G0378; J2060; J3490

== ENCOUNTER 2019-12-09 05:18 | Outpatient (CLI) | payer BC, SELFPAY ==
[2019-12-09 12:42] LABS: Anion Gap 5.7 mmol/L (3-11); BUN 18 mg/dL (7-18); CO2 31.3 mmol/L (21.0-32.0); Calcium 9.4 mg/dL (8.5-10.1); Chloride 104 mmol/L (98-107); Glucose 81 mg/dL (74-106); Magnesium 2.1 mg/dL (1.8-2.4); Potassium 4.3 mmol/L (3.5-5.1); Sodium 141 mmol/L (136-145)
== END 2019-12-09 05:38 ==
PROVIDERS: PCP Nurse Practitioner; Visit Provider Nurse Practitioner Family
DX: E87.6 Hypokalemia (principal); R00.2 Palpitations
CPT/HCPCS: 36415; 80048; 83735

== ENCOUNTER 2019-12-24 12:10 | Outpatient (CLI) | payer BC, SELFPAY | END 2019-12-24 12:30 | PROVIDERS: PCP Nurse Practitioner; Visit Provider Nurse Practitioner | DX: R00.0 Tachycardia, unspecified (principal); R00.2 Palpitations; F41.9 Anxiety disorder, unspecified; I10 Essential (primary) hypertension | CPT/HCPCS: 93225 ==

== ENCOUNTER 2019-12-29 09:07 | Outpatient (CLI) | payer BC, SELFPAY ==
--- NOTE | 2019-12-30 08:32 | W.HOLTRPT ---
Date of service: 12/30/19 Time of Service: 08:32 Holter Monitor Report Referring Provider:: Steph Indications:: Palps Holter Monitor Note: This is a 48-hour Holter monitor ordered for occasional palpitations. ?The patient was in normal sinus rhythm for majority of the recording with an average heart rate of 69 bpm. ?There were 0 episodes of supraventricular tachycardia and 40 total PACs. Some of these PACs were symptomatic. ?There was one episode of nonsustained VT accounting for a total of 5 beats. This was asymptomatic. There were no PVCs recorded. ?There are no episodes of atrial fibrillation, no pauses. 3 seconds and no evidence of high degree heart block. ?Patient recorded 15 symptomatic episodes most of which were associated with normal sinus rhythm and 2 singular PACs.
== END 2019-12-29 09:27 ==
PROVIDERS: PCP Nurse Practitioner; Visit Provider Nurse Practitioner
DX: R00.2 Palpitations (principal); R00.0 Tachycardia, unspecified; F41.9 Anxiety disorder, unspecified; I10 Essential (primary) hypertension; I49.3 Ventricular premature depolarization; I47.2 Ventricular tachycardia
CPT/HCPCS: 93226

== ENCOUNTER 2020-02-01 02:14 | Outpatient (CLI) | payer BC, SELFPAY ==
[2020-02-01 12:43] LABS: HCT 43.7 % (36.0-46.0); HGB 13.9 g/dL (11.2-15.7); MCH 31.5 pg (27.0-33.0); MCHC 31.8 % (32.0-36.0); MCV 99.1 fL (80-95); MPV 10.6 fL (8.0-11.0); Platelet Count 319 10^3/uL (130-400); RBC 4.41 10^6/uL (3.93-5.22); RDW 13.2 % (11.7-14.6); RDW-SD 47.8 fL; WBC 10.23 10^3/uL (4.4-10.8)
== END 2020-02-01 02:34 ==
PROVIDERS: PCP Nurse Practitioner; Visit Provider Nurse Practitioner
DX: D72.829 Elevated white blood cell count, unspecified (principal)
CPT/HCPCS: 36415; 85027

== ENCOUNTER 2020-03-03 07:07 | Outpatient (RCR) | payer BC, SELFPAY ==
--- NOTE | 2020-03-03 10:30 | HOLTER_ITS ---
APPROVED REPORT Exam Type: HOLTER MONITOR APPLICATION Reason for Test: irreg heart rate Patient Location: O Conclusion This is a 48-hour Holter monitor ordered for the indication of irregular heart rate. ???The patient was in normal sinus rhythm with majority the recording with an average heart rate of 6 3 bpm. ???There were rare PACs and 2 episodes of SVT with the longest lasting 3 beats. ???There were no ventricular ectopic beats nor any episodes of ventricular tachycardia. ???There were no episodes of atrial fibrillation, no pauses greater than 3 seconds and no evidence of high degree heart block. ???There were no patient triggered events.
== END 2020-03-16 23:59 | disposition home or self-care (01) ==
LOC: RT 07:07
PROVIDERS: PCP Nurse Practitioner; Visit Provider Nurse Practitioner
DX: I49.8 Other specified cardiac arrhythmias (principal); I47.1 Supraventricular tachycardia
CPT/HCPCS: 93227; 93225; 93226

== ENCOUNTER 2020-03-08 17:58 | Outpatient (CLI) | payer BC, SELFPAY ==
--- NOTE | 2020-03-08 17:45 | RT.EKG_ITS ---
APPROVED REPORT Exam: Resting ECG Patient Location: O HR:66 bpm ECG Measurements Heart Rate 66 AXIS AR 152 P 68 QRSd 84 QRS 21 QT 396 T 26 QTc 414 Conclusion Sinus rhythm...normal P axis, V-rate 60- 99 Left atrial enlargement...P, P'>60mS, <-0.15mV V1
[2020-03-08 22:09] LABS: Abs Immature Grans 0.01 10^3/uL (0.0-0.06); Absolute Basophil Count 0.09 10^3/uL (0.0-0.2); Absolute Eosinophil Count 0.27 10^3/uL (0.0-0.7); Absolute Lymphocyte Count 2.14 10^3/uL (1.2-3.4); Absolute Monocyte Count 0.71 10^3/uL (0.1-0.8); Basophils % 1.1; Eosinophils % 3.2; HCT 43.2 % (36.0-46.0); HGB 14.3 g/dL (11.2-15.7); Immature Grans % 0.1; Lymphocytes % 25.4; MCH 31.3 pg (27.0-33.0); MCHC 33.1 % (32.0-36.0); MCV 94.5 fL (80-95); MPV 10.6 fL (8.0-11.0); Monocytes % 8.4; Neutrophils % 61.8; Nucleated RBC 0 %; Platelet Count 172 10^3/uL (130-400); RBC 4.57 10^6/uL (3.93-5.22); RDW 12.4 % (11.7-14.6); RDW-SD 43.3 fL; WBC 8.42 10^3/uL (4.4-10.8)
[2020-03-08 22:36] LABS: TSH (W/Ref FT4) 1.24 uIU/mL (0.36-3.74)
[2020-03-08 22:39] LABS: D-Dimer 483 ng/mlFEU (<500)
== END 2020-03-08 18:18 ==
LOC: DI.CM 17:59 → LBN 18:44
PROVIDERS: PCP Nurse Practitioner; Visit Provider Physician Assistant
DX: R07.9 Chest pain, unspecified (principal)
CPT/HCPCS: 84443; 85025; 85379

== ENCOUNTER 2020-03-20 03:27 | Outpatient (CLI) | payer BC, SELFPAY ==
[2020-03-21 19:37] LABS: COVID-19 RT-PCR UVMMC Result Negative (Negative)
== END 2020-03-20 03:47 ==
PROVIDERS: PCP Nurse Practitioner; Visit Provider Internal Medicine Cardiovascular Disease
DX: Z11.59 Encounter for screening for other viral diseases (principal); Z01.810 Encounter for preprocedural cardiovascular examination
CPT/HCPCS: U0003

== ENCOUNTER 2020-03-23 01:11 | Outpatient (CLI) | payer BC, SELFPAY ==
--- NOTE | 2020-03-23 07:15 | DI.NM_ITS ---
APPROVED REPORT Exam: Exercise Treadmill Patient Location: Out-Patient Room/Bed: Stress Nurse: Eneida Leo RN Ordering Provider:INDERJIT RENTERIA, Contact Number: [phone] BMI: 24.88 Baseline Rhythm: Sinus Rhythm Indications: Patient reports episode of 5/10, nonradiating, sternal chest pressure while painting, la sting a few minutes. Patient reports experiencing lightheadedness and diaphoresis during this episode . Medical History Medical History: DVT, Pre-Diabetes, HTN, Palpitations. Cardiac Medications: Aspirin, Metoprolol Succinate, Losartan. , Allergies: Lisinopril. Cardiac Risk Factors: FHX of CAD, HTN, DM Previous Cardiac Procedures: None. Pretest Chest Pain Characteristics: No chest pain Exercise History: Physically active Physical Disabilities: None. Lung Sounds: Clear to auscultation Heart Sounds: Regular Stress Test Details Test: Exercise stress testing was performed using a Miguelito protocol. Nuclear Acquisition: Rest Tc-99m/Stress Tc-99m 1 day Rest Isotope: Tc-99m Sestamibi. Dose: 11.0 Date: 03/23/20 Injection Time: 0900 Stress Isotope: Tc-99m Sestamibi. Dose: 37.0 Date: 03/23/20 Injection Time: 1029 HR Resting HR Supine: 69 bpm Max Heart Rate (APMHR): 161.278549 bpm Resting HR Standin bpm Target HR (85% APMHR): 136.003297 bpm Max HR Achieved: 167 bpm % of APMHR: 103.73 Recovery HR: 92 bpm HR response to stress: Normal HR response to stress Comment: Patient held Beta Roge last evening for test. BP Resting BP Supine: 122/68 mmHg Resting BP Standin/74 mmHg Max BP: 168/72 mmHg Recovery BP: 122/68 mmHg BP response to stress: Normal blood pressure response to stress. ECG Resting ECG: Sinus Rhythm Ectopy: None. Stress ECG: Sinus Tachycardia ST Change: No significant ST segment changes noted. Arrhythmia: None Recovery ECG: Sinus Rhythm Recovery ST Change: No significant ST segment changes noted. Recovery Arrhythmia: None Clinical Reason for Termination: Leg fatigue. Stress Symptoms: Leg Fatigue Exercise duration: 7 min48 sec Highest Stage Reached: Stage 3: 3.4 mph at 14% grade. Exercise capacity: 9.84 METs Angina Score: None [place] Treadmill Score: 7.3 Rate Pressure Product: 8418 Stress ECG Conclusion 1. The patient exercised for 8 minutes (10 METS). Exercise was stopped due to leg fatigue. 2. There is no evidence of ischemia on the ECG portion of the exam. [place] Treadmill Score is 7.3 which is Low risk. Stress Test Summary STAGE Time (mins) Speed (mph) Grade (%) HR BP SYMPTOMS METS Supine 69 122/68 SpO2 96% Standing 82 126/74 1 3 1.7 10 117 136/70 SpO2 96% 4.6 1 min recovery 162 168/72 SpO2 96%, lightheaded. 3 min recovery 106 150/68 6 min recovery 92 122/68 Patient lightheaded with immediate cessation of exercise, resolved upon lying down. MPI Conclusion The ejection fraction was 71% with stress. There were no wall motion abnormalities. There is no evidence of ischemia on the imaging portion of the exam. This represents a normal SPECT stress test. Radiologist Interpretation Radiologist agrees with Network Announcer's Interpretation. Radiologist Interpretation by: Lauren Castillo MD Interpretation Date/Time: 03/28/2020 13:39:53
== END 2020-03-23 01:31 ==
PROVIDERS: PCP Nurse Practitioner; Visit Provider Physician Assistant
DX: R07.9 Chest pain, unspecified (principal); R42 Dizziness and giddiness; Z82.49 Family history of ischemic heart disease and other diseases of the circulatory system; I10 Essential (primary) hypertension; E11.9 Type 2 diabetes mellitus without complications
CPT/HCPCS: 78452; 93017

== ENCOUNTER 2020-04-18 10:39 | Outpatient (REF) | payer BC, SELFPAY ==
--- NOTE | 2020-04-18 09:30 | PAPFT_PTH ---
PATIENT: Waleska Baig LOC: [facility] U#:[id number] AGE/SX: 59/F ROOM: RE04/18/[address]: Lala Santana NP : 1960 BED: DIS: 04/18/2020 SPEC #: [id number] RECD: 04/18/20 12:53 STATUS: SCOTT REWily #: [id number] MICHAEL: 04/18/20 09:[address]: Max ALVARADO,Llaa DEPT: [facility] Cytology RECD BY: Deidre De La Torre ENTERED: 04/18/20 12:54 SP TYPE: PAPFT OTHR DR: Ashley Choi, PhD [employer]ETING MANAGER Tissues: 1 - CX/ENDOCX FOR PAP SMEARS Procedures: PAP THIN PREP/UVM Screening HPV DNA PROBE Comments: [id number]
== END 2020-04-18 10:40 | disposition home or self-care (01) ==
LOC: LBN 10:39
PROVIDERS: PCP Nurse Practitioner; Visit Provider Nurse Practitioner Women's Health
DX: Z12.4 Encounter for screening for malignant neoplasm of cervix (principal); Z11.51 Encounter for screening for human papillomavirus (HPV)
CPT/HCPCS: 88142; 87624

== ENCOUNTER 2020-12-07 01:37 | Outpatient (CLI) | payer BC, SELFPAY ==
[2020-12-07 13:11] LABS: Hemoglobin A1C 5.9 % (<5.7)
== END 2020-12-07 01:38 | disposition home or self-care (01) ==
LOC: LOS 01:37
PROVIDERS: PCP Nurse Practitioner; Visit Provider Nurse Practitioner
DX: E11.9 Type 2 diabetes mellitus without complications (principal)
CPT/HCPCS: 36415; 83036

== ENCOUNTER 2021-02-19 03:09 | Outpatient (CLI) | payer BC, SELFPAY ==
[2021-02-19 14:37] LABS: Anion Gap 8.7 mmol/L (3-11); BUN 23 mg/dL (7-18); CO2 27.3 mmol/L (21.0-32.0); CREATININE 0.7 mg/dL (0.55-1.02); Calcium 9.3 mg/dL (8.5-10.1); Chloride 105 mmol/L (98-107); Glucose 94 mg/dL (74-106); Potassium 4.5 mmol/L (3.5-5.1); Sodium 141 mmol/L (136-145); Vitamin B12 631 pg/mL (193-986)
== END 2021-02-19 03:10 | disposition home or self-care (01) ==
PROVIDERS: PCP Nurse Practitioner; Visit Provider Nurse Practitioner
DX: I10 Essential (primary) hypertension (principal)
CPT/HCPCS: 36415; 80048; 82607

== ENCOUNTER 2022-02-27 02:51 | Outpatient (CLI) | payer BC, SELFPAY ==
[2022-02-27 08:50] LABS: HCT 43.4 % (36.0-46.0); MCH 30.8 pg (27.0-33.0); MCHC 32.3 % (32.0-36.0); MCV 96 fL (80-95); MPV 9.7 fL (8.0-11.0); Platelet Count 335 10^3/uL (130-400); RBC 4.54 10^6/uL (3.93-5.22); RDW 12.8 % (11.7-14.6); RDW-SD 45.1 fL
[2022-02-27 09:11] LABS: ALT 44 U/L (14-59); AST 34 U/L (15-37); Albumin 3.6 g/dL (3.4-5.0); Alkaline Phosphatase 69 U/L (46-116); Anion Gap 6.4 mmol/L (3-11); BUN 20 mg/dL (7-18); Bilirubin, Total 0.4 mg/dL (0.2-1.0); CO2 28.6 mmol/L (21.0-32.0); CREATININE 0.8 mg/dL (0.55-1.02); Calcium 9.4 mg/dL (8.5-10.1); Chloride 104 mmol/L (98-107); Estimated GFR 83.78 (mL/min/1.73m2); Glucose 99 mg/dL (74-106); Potassium 4.2 mmol/L (3.5-5.1); Sodium 139 mmol/L (136-145); Total Protein 7.5 g/dL (6.4-8.2)
[2022-02-27 09:33] LABS: Hemoglobin A1C 5.9 % (<5.7)
[2022-02-28 10:35] LABS: Hepatitis C Ab w Rflx HCV PCR Negative (Negative)
== END 2022-02-27 02:52 | disposition home or self-care (01) ==
LOC: LBO 02:51
PROVIDERS: PCP Nurse Practitioner Family; Visit Provider Nurse Practitioner Family
DX: Z00.00 Encounter for general adult medical examination without abnormal findings (principal); R73.03 Prediabetes; I10 Essential (primary) hypertension; F41.8 Other specified anxiety disorders; Z11.59 Encounter for screening for other viral diseases
CPT/HCPCS: 36415; 80053; 85027; 86803; 83036

== ENCOUNTER → 2022-12-31 16:19 | Outpatient (CLI) | payer BC, SELFPAY ==
--- NOTE | 2022-12-31 12:15 | DI.RAD_ITS ---
Exam(s) XR HAND LT COMPLETE EXAM: XR HAND LT COMPLETE CLINICAL HISTORY: PAIN IN LT HAND-[id number]. TECHNIQUE: 2D digital imaging was performed. COMPARISON: No exams were available for comparison FINDINGS: 3 views No evidence of acute fracture nor dislocation nor radiopaque foreign bodies. No osseous lesions nor erosions. There are advanced degenerative changes evident at the 1st carpometacarpal joint. IMPRESSION: Degenerative changes at the 1st carpometacarpal joint. DATA REPOSITORY: RADIATION DOSE DELIVERED:
== END ==
PROVIDERS: PCP Nurse Practitioner Family; Visit Provider Nurse Practitioner Family
DX: M18.12 Unilateral primary osteoarthritis of first carpometacarpal joint, left hand (principal)
CPT/HCPCS: 73130

== ENCOUNTER 2023-04-07 04:40 | Outpatient (CLI) | payer BC, SELFPAY ==
[2023-04-07 08:55] LABS: HCT 41.3 % (36.0-46.0); HGB 13.6 g/dL (11.2-15.7); MCH 31.3 pg (27.0-33.0); MCHC 32.9 % (32.0-36.0); MCV 95 fL (80-95); MPV 9.5 fL (8.0-11.0); Platelet Count 321 10^3/uL (130-400); RBC 4.34 10^6/uL (3.93-5.22); RDW 12.6 % (11.7-14.6); RDW-SD 44.2 fL; WBC 8.95 10^3/uL (4.4-10.8)
[2023-04-07 09:51] LABS: Anion Gap 6.2 mmol/L (3-11); BUN 15 mg/dL (7-18); CO2 28.8 mmol/L (21.0-32.0); CREATININE 0.9 mg/dL (0.55-1.02); Calcium 9.3 mg/dL (8.5-10.1); Calculated LDL 107 mg/dL (<100); Chloride 103 mmol/L (98-107); Cholesterol 185 mg/dL (<200); Estimated GFR 72.28 (mL/min/1.73m2); Glucose 103 mg/dL (74-106); HDL Cholesterol 63 mg/dL (40-60); Potassium 4.3 mmol/L (3.5-5.1); Sodium 138 mmol/L (136-145); Triglyceride 78 mg/dL (<150)
== END 2023-04-07 04:41 | disposition home or self-care (01) ==
PROVIDERS: PCP Nurse Practitioner Family; Visit Provider Nurse Practitioner Family
DX: F41.9 Anxiety disorder, unspecified (principal); I10 Essential (primary) hypertension; M79.642 Pain in left hand; R00.2 Palpitations; R73.03 Prediabetes; Z00.00 Encounter for general adult medical examination without abnormal findings
CPT/HCPCS: 36415; 80048; 80061; 85027; 83036

== ENCOUNTER 2023-04-07 08:31 | Outpatient (CLI) | payer BC, SELFPAY ==
--- NOTE | 2023-04-07 08:30 | RT.EKG_ITS ---
APPROVED REPORT Exam: Resting ECG Reason for Exam: palpitations Patient Location: O HR:55 bpm ECG Measurements Heart Rate 55 AXIS MO 171 P 52 QRSd 81 QRS -4 QT 421 T 17 QTc 403 Conclusion Sinus rhythm...normal P axis, V-rate 50- 99 Probable left atrial enlargement...P >50mS, <-0.10mV V1 Nonspecific T abnormalities, anterior leads...T <-0.10mV, V2-V4 I have reviewed and interpreted ECG and agree with software generated interpretation.
== END 2023-04-07 08:32 | disposition home or self-care (01) ==
LOC: DI.CARD 08:31
PROVIDERS: PCP Nurse Practitioner Family; Visit Provider Internal Medicine Interventional Cardiology
DX: R00.2 Palpitations (principal)
CPT/HCPCS: 93010

== ENCOUNTER 2024-05-05 02:35 | Outpatient (CLI) | payer BC, SELFPAY ==
[2024-05-05 13:24] LABS: ALT 25 U/L (14-59); AST 17 U/L (15-37); Albumin 3.4 g/dL (3.4-5.0); Alkaline Phosphatase 76 U/L (46-116); Anion Gap 5.2 mmol/L (3-11); BUN 18 mg/dL (7-18); Bilirubin, Total 0.28 mg/dL (0.2-1.0); CO2 31.8 mmol/L (21.0-32.0); CREATININE 0.8 mg/dL (0.55-1.02); Calcium 9.6 mg/dL (8.5-10.1); Chloride 106 mmol/L (98-107); Estimated GFR 82.74 (mL/min/1.73m2); Glucose 101 mg/dL (74-106); Potassium 4.4 mmol/L (3.5-5.1); Sodium 143 mmol/L (136-145); Total Protein 7.3 g/dL (6.4-8.2)
[2024-05-05 14:48] LABS: Calculated LDL 116 mg/dL (<100); Cholesterol 201 mg/dL (<200); HDL Cholesterol 62 mg/dL (40-60); Triglyceride 119 mg/dL (<150)
== END 2024-05-05 02:36 | disposition home or self-care (01) ==
LOC: LOS 02:35
PROVIDERS: PCP Nurse Practitioner Family; Visit Provider Nurse Practitioner Family
DX: Z00.00 Encounter for general adult medical examination without abnormal findings (principal); F41.9 Anxiety disorder, unspecified; I10 Essential (primary) hypertension; R73.03 Prediabetes; E78.5 Hyperlipidemia, unspecified
CPT/HCPCS: 36415; 80053; 80061; 83036

== ENCOUNTER 2024-07-12 10:52 | Day surgery (SDC) | payer BC, SELFPAY ==
--- NOTE | 2024-07-11 10:00 | W.PM.DSUDISC ---
Date of service: 07/12/24 Discharge Plan Disposition Patient Disposition: Home Condition: Good Discharge Details Reason For Visit: screening colonoscopy Attending Provider: Marc Sharif Primary Care Provider: Dora Thompson Home Meds and New Rx's Prescriptions: Continued Magnesium Complex 300 mg magnesium tablet 200 mg PO DAILY Rx Instructions: Calcium 400 mg-magnesium 200 mgsupplement cholecalciferol (vitamin D3) 10 mcg (400 unit) capsule 20 mcg PO DAILY bisacodyl [Dulcolax (bisacodyl)] 5 mg tablet,delayed release (DR/EC) 5 mg PO ONCE Qty: 4 0RF Rx Instructions: Take per colonoscopy instructions provided by ordering providers office polyethylene glycol 3350 17 gram/dose powder 17 g PO ONCE Qty: 238 0RF Rx Instructions: Take per colonoscopy instructions provided by ordering providers office multivitamin [Daily Multi-Vitamin] 1 EACH tablet 1 ea PO DAILY aspirin 81 MG tablet,delayed release (DR/EC) 81 mg PO DAILY red yeast rice 600 MG capsule 600 mg PO DAILY coenzyme Q10 [CoQ-10] 100 mg capsule 200 mg PO DAILY ascorbic acid (vitamin C) 1,000 mg tablet 1 gm PO DAILY metoprolol succinate 50 mg tablet extended release 24 hr 50 mg PO DAILY Qty: 90 3RF fluoxetine 20 mg capsule See Rx Instructions .ROUTE .COMPLEX Qty: 90 3RF Dose Instruction: TAKE ONE CAPSULE BY MOUTH EVERY DAY Rx Instructions: TAKE ONE CAPSULE BY MOUTH EVERY DAY fluoxetine 10 mg capsule See Rx Instructions .ROUTE .COMPLEX Qty: 90 3RF Dose Instruction: TAKE ONE CAPSULE BY MOUTH EVERY DAY WITH 20MG Rx Instructions: TAKE ONE CAPSULE BY MOUTH EVERY DAY WITH 20MG Discharge Instructions Instructions: Colon polyps, Diverticulosis Additional Instructions: Waleska, was great to meet you today, and I hope you are comfortable through the procedure. Everything went very smoothly. Your prep was excellent negative everything fine. I did find, and removed, 1 very small polyp in your rectum today. This is quite close to your anus, and may result in a little bit of bleeding over the first few bowel movements. That is nothing to be alarmed about. This typically Cysticide's in about 24 to 48 hours. Incidentally, you also have some diverticulosis. I will attach a little bit of information here about diverticulosis as well as colorectal polyps. If you have any questions at all, please do not hesitate to ask, otherwise, my office will be in touch once the report from the polyp is available. 1. If tolerated, consume a soft, low fiber diet for 1-2 days. 2[address] Do not drive, drink alcohol, operate machinery, make critical decisions, or do activities that require coordination or balance for 24 hours. 3. Because air was put into your colon during the procedure, expelling air from your rectum (passing gas or farting) is normal. 4. You may not have a bowel movement for 1-3 days because of the colonoscopy prep. This is normal. 5. Go directly to the emergency room if you notice any of the following: Develop chills (warm to touch), or if you have a thermometer and your temperature is above 101 Difficulty breathing or difficultly swallowing Persistent vomiting Severe abdominal pain, other than gas cramps Severe chest pain Black, tarry stools Any bleeding ? exceeding one tablespoon 6. Call your physician if the site where your intravenous was started becomes red, swollen, painful, and warm to touch. 7. Your physician has reviewed your pre-procedure medications. Please continue to take those medications as previously ordered. You will be given specific information/education regarding any changes to your medications before leaving. Activity:: Activity as Tolerated Diet:: As Tolerated Discharge Orders Discharge Orders: Discharge Order (Routine); Ordered 07/11/24 Ordered By: Marc Sharif DS: Diagnosis Discharge Diagnosis (1) Encounter for screening colonoscopy: Status: Acute Asessment and Plan: Follow-up on polypectomy result
--- NOTE | 2024-07-11 10:01 | W.COLOREPORT ---
Date of service: 07/12/24 Time of Service: 12:29 Colonoscopy Report Date of procedure: 07/12/24 Pre-op diagnosis general: screening colonoscopy Post-op diagnosis procedure note: other (Diverticulosis, rectal polyp) Procedure: colonoscopy with polypectomy Surgeon: Marc Sharif Anesthesia Type: General:No Airway Estimated blood loss (mL): 5 Pathology: other (0.25 cm pedunculated rectal polyp) Complications: None Disposition: same day Indications: Waleska is a 64 year old woman who needs a screening colonscopy Prep: Miralax/Dulcolax Procedure Start Time: 12:00 Procedure End Time: 12:17 Retraction Time: 10 Findings: 0.25 cm pedunculated rectal polyp, diverticulosis Procedure Description: After the induction of anesthesia, and with the patient in left lateral decubitus position, I began by performing an external anorectal exam.? Perineum and skin were normal, as was the anal verge.? Next, I performed a digital rectal exam.? I did not appreciate any abnormal findings.? Next, I advanced a colonoscope into the rectal vault.? I performed retroflexion.? There is a 0.25 cm slightly pedunculated polyp in the rectum. This was removed with cold forceps without any issues.? Using irrigation, I then advanced the colonoscope beyond the rectal folds and into the sigmoid colon before advancing towards the cecum.? The quality of the prep was outstanding.? The scope was noted to be in the cecum by identification of the ileocecal valve and appendiceal orifice.? I then began withdrawing the colonoscope using repeated irrigation as necessary for full evaluation of the colonic mucosa. There is sigmoid diverticulosis once the scope was withdrawn to the level of the rectum, great care was taken to examine portions of the rectal folds.? Finally, the scope was withdrawn and the patient was brought to the same-day surgery recovery unit as the anesthetic wore off. ?The findings and instructions were shared with the patient prior to discharge. [place] Bowel Prep [place] Bowel Prep Right Colon: 3 Left Colon: 3 Transverse Colon: 3 Total Score: 9
--- NOTE | 2024-07-12 06:19 | ANES.PREOP_ITS ---
General Info Date of Service Date Performed: 07/12/24 Height: 5 ft Weight: 74.389 kg Body Mass Index (BMI): 32.0 Surgical Procedure: Operation Date: 07/12/24 11:50 Proposed Procedure Side Surgeon clementine Sharif MD Meds Allergies and Home Medications Allergies Allergy/AdvReac Type Severity Reaction Status Date / Time lisinopril AdvReac Mild Cough Verified 07/12/24 11:14 Home Medication ?Medication ?Instructions ?Recorded aspirin 81 mg tablet,delayed 81 mg PO DAILY 07/09/16 release multivitamin (Daily Multi-Vitamin 1 ea PO DAILY 07/09/16 tablet) red yeast rice 600 mg capsule 600 mg PO DAILY 07/09/16 ascorbic acid (vitamin C) 1,000 mg 1 gm PO DAILY 10/04/19 tablet coenzyme Q10 100 mg capsule 200 mg PO DAILY 10/04/19 (CoQ-10) cholecalciferol (vitamin D3) 10 20 mcg PO DAILY 04/18/20 mcg (400 unit) capsule magnesium carb,citrate,oxide 200 mg PO DAILY 04/18/20 (Magnesium Complex) metoprolol succinate 50 mg 50 mg PO DAILY #90 tabs 01/20/24 tablet,extended release 24 hr fluoxetine 20 mg capsule See Rx Instructions .Route 03/24/24 .COMPLEX #90 caps fluoxetine 10 mg capsule See Rx Instructions .Route 03/25/24 .COMPLEX #90 caps bisacodyl 5 mg tablet,delayed 5 mg PO ONCE #4 tabs 07/08/24 release (Dulcolax (bisacodyl)) polyethylene glycol 3350 17 17 g PO ONCE #238 grams 07/08/24 gram/dose oral powder Current Visit Medications: Current Medications Generic Name Dose Route Start Last Admin Trade Name Freq PRN Reason Stop Dose Admin Ringer's Solution 1,000 mls @ 80 mls/hr 07/12/24 06:00 IV 07/12/24 23:59 INFUSION [facility] IV Miscellaneous Supplies 1 each 07/12/24 06:00 Iv Access IV 07/12/24 23:59 DIRECTED [facility] Ondansetron HCl 4 mg 07/11/24 10:02 Ondansetron 4 Mg/2 Ml Vial IVP 08/10/24 10:01 Q4H PRN PRN Nausea / Vomiting Sodium Chloride 0 ml 07/12/24 06:00 Normal Saline Flush 10 Ml Syr IV 07/12/24 23:59 PRN PRN Sodium Chloride 0 ml 07/12/24 06:00 Normal Saline 10 Ml Vial IJ 07/12/24 23:59 DIRECTED PRN Sterile Water 0 ml 07/12/24 06:00 Water,Injection,Sterile 10 Ml Vial IJ 07/12/24 23:59 DIRECTED PRN PFSH Active Problems Active Problems: Problem Status Onset Code Encounter for screening colonoscopy Acute Z12.11 Carpal tunnel syndrome of right wrist Acute G56.01 Carpal tunnel syndrome of left wrist Acute G56.02 Hand pain, left Acute M79.642 Postmenopausal atrophic vaginitis Acute N95.2 Prediabetes Chronic R73.03 Palpitations Acute R00.2 Anxiety Chronic F41.9 Hypertension Chronic I10 Facial numbness Acute R20.0 Medical History Medical History (Updated 07/11/24 @ 10:00 by Marc Sharif MD) Tachycardia determined by examination of pulse controlled on propranolol Atypical chest pain 2020- cardiac work up neg DVT (deep venous thrombosis) 1981 Surgical History Surgical History H/O right knee surgery Colonoscopy - IV Sedation (08/05/16) section Tobacco Smoking/Tobacco Use Status: Never Passive smoking exposure: No Second hand exposure: Yes Alcohol Alcohol Intake: current Alcohol intake frequency: holidays/special occasions only Alcohol type: wine Substance Use Substance use: Never Substance use type: does not use Vital Signs and Lab Results Vital Signs Most Recent Vital Signs in EMR: Pulse Resp BP Pulse Ox 71 19 133/82 96 07/12/24 11:05 07/12/24 11:05 07/12/24 11:05 07/12/24 11:05 Lab Results Blood Type / Crossmatch: No Data to Display Complete Blood Count: No Data to Display Complete Metabolic Panel: No Data to Display Liver Function Panel: No Data to Display Coagulation Panel: No Data to Display Cardiac Panel: No Data to Display Arterial Blood Gas: No Data to Display Venous Blood Gas: No Data to Display Pancreas Panel: No Data to Display Thyroid Panel: No Data to Display Infectious Disease: No Data to Display Blood Cultures: No Data to Display Toxicology Panel: No Data to Display Imaging and Studies Imaging and Studies Study information below may be from another EMR and interpreted by another provider. Please see original notes in EMR for more complete details. EKG Summary: 04/07/23: Exam: Resting ECG Reason for Exam: palpitations Patient Location: O HR:55 bpm ECG Measurements Heart Rate 55 AXIS MO 171 P 52 QRSd 81 QRS -4 QT 421 T17 QTc 403 Conclusion Sinus rhythm...normal P axis, V-rate 50- 99 Probable left atrial enlargement...P >50mS, <-0.10mV V1 Nonspecific T abnormalities, anterior leads...T <-0.10mV, V2-V4 I have reviewed and interpreted ECG and agree with software generated interpretation. Stress Test Summary: 03/23/20: MPI Conclusion The ejection fraction was 71% with stress. There were no wall motion abnormalities. There is no evidence of ischemia on the imaging portion of the exam. This represents a normal SPECT stress test. Echocardiogram Summary: 08/26/19: Conclusion Left Ventricle : The left ventricle is normal size. The left ventricular systo lic function is normal. The left ventricular ejection fraction is within the normal range. There is normal left ventricular wall thickness. There is normal LV segmental wall motion. The left ventricular diastolic function is normal. LVEF is 55%. Right Ventricle : The right ventricle is normal size. The right ventricular systolic function is normal. The RVSP is 20.2 mmHg Atria : The left atrium size is normal. The right atrium size is normal. Valves: There are no hemodynamically significant valvular lesions. Please see remainder of study for additional details. There is no prior echocardiogram available for comparison. Carotid Artery Summary:: 08/25/19: IMPRESSION: 1. No occlusion or significant stenosis in the arteries of the neck. RADIATION DOSE DELIVERED: 254.33mGy.cm Total DLP 254.33mGy.cm Total DLP DATA REPOSITORY: All CT scans at this facility are submitted to the National Radiology Data Registry (NRDR) Dose Index Registry (DIR) with the [employer] (A[employer]). RADIATION OPTIMIZATION: All CT scans at this facility use at least one of these dose optimization techniques: automated exposure control; mA and/or kV adjustme nt per patient size (includes targeted exams where dose is matched to clinical indication); or iterative reconstruction. Anesthesia Assessment and Plan Anesthesia History Personal History: No History of Anesthesia Complications Family History: No Family History of Anesthesia Complications Exercise Tolerance Exercise Tolerance: Metabolic Equivalents>4 Pertinent Negatives Pertinent Negatives: No Symptoms of GERD, No Major Cardiovascular Symptoms or Complaints and No Major Pulmonary Symptoms or Complaints Cardiac & Pulmonary Exam Cardiac Exam: Normal S1/S2 Heart Sounds Pulmonary Exam: Clear Bilateral Breath Sounds Implantable Cardiac Device Does patient have a Pacemaker or an ICD?: No Airway Exam Known Difficult Airway: No Mallampati Class: 2 Mouth Opening: Normal (> 3cm) Thyromental Distance: Greater than 3 cm Neck Range of Motion: Full ROM Neck Circumference: Normal Teeth Condition: Normal Dentition ASA Classification ASA Score: ASA 2 Emergency Case?: No NPO Status NPO Status: NPO Clears >2 hours, Solids >8 hours Anesthesia Plan Resuscitation Status: Full Code Anesthesia Technique: General Anesthesia Airway Planned: Natural Airway Monitors Used: Standard Monitors Preoperative Comments:: 64 yo female for colo. Sig PMHx: HTN, palpitations (metoprolol), PreDM, anxiety, DVT. never smoker, occ EtOH. Stress: 10 METS, no ischemia on ECG. EF 71%. no perfusion evidence of ischemia. ECHO: LVEF 55%, no sig valve issues. Carotid CT: no sig stenosis. ECG: sinus. probable LAE.
[2024-07-12 11:05] VITALS: BP 133/82; PULSE 71; RESP 19; O2SAT 96
[2024-07-12] MEDS: Lactated Ringers 1,000 ML 80 ML IV (11:22)
[2024-07-12 12:03] VITALS: BMI 32.0
--- NOTE | 2024-07-12 12:16 | BOWEL_PTH ---
PATIENT: Waleska Baig LOC: [facility] U#:[id number] AGE/SX: 64/F ROOM: RE07/12/[address]: Marc Sharif MD : [id number] BED: DIS: 07/12/2024 SPEC #: [id number] RECD: 07/12/24 13:15 STATUS: SCOTT REQ #: [id number] MICHAEL: 07/12/24 12:[address]: Marc Sharif DEPT: Surgical Specimen RECD BY: Deidre De La Torre ENTERED: 07/12/24 13:16 SP TYPE: Bowel OTHR DR: Dora Thompson, JENNY Tissues: 1 - BIOPSY BOWEL Procedures: GROSS AND MICRO LEVEL 4 Comments: [id number]
[2024-07-12 12:25] VITALS: BP 107/58; PULSE 63; RESP 16; TEMP 36.1; O2SAT 98
[2024-07-12 12:52] VITALS: BP 120/70; PULSE 63; RESP 18; O2SAT 98
--- NOTE | 2024-07-12 13:10 | W.ANESPOSTOP ---
Postoperative Evaluation Date, Time and Location Date Performed: 07/12/24 Time Performed: 13:10 Patient Location: Day Surgery Unit Vital Signs Most Recent Imported Vital Signs: Most Recent Vital Signs Temp Pulse Resp BP Pulse Ox 36.1 C L 63 18 120/70 98 07/12/24 12:25 07/12/24 12:52 07/12/24 12:52 07/12/24 12:52 07/12/24 12:52 Pain Score Most Recent Pain Score: Most Recent Pain Score Pain Level 0 07/12/24 12:52 Assessment Mental Status: Awake (Alert & Oriented to Patient Baseline) Airway and Respiratory Function: Patent airway with normal (patient baseline) respiratory exam Cardiovascular Function: Hemodynamically Stable Hydration Status: Adequately Hydrated Nausea & Vomiting: No Nausea or Vomiting Pain: Pt. Denies Any Pain Peripheral Nerve Block: Patient did not receive a nerve block
--- NOTE | 2024-07-12 13:11 | W.ANESPOSTOP ---
Postoperative Evaluation Date, Time and Location Date Performed: 07/12/24 Time Performed: 13:05 Patient Location: Day Surgery Unit Vital Signs Most Recent Imported Vital Signs: Most Recent Vital Signs Temp Pulse Resp BP Pulse Ox 36.1 C L 63 18 120/70 98 07/12/24 12:25 07/12/24 12:52 07/12/24 12:52 07/12/24 12:52 07/12/24 12:52 Most Recent Vital Signs Temp Pulse Resp BP Pulse Ox 36.1 C L 63 18 120/70 98 07/12/24 12:25 07/12/24 12:52 07/12/24 12:52 07/12/24 12:52 07/12/24 12:52 Pain Score Most Recent Pain Score: Most Recent Pain Score Pain Level 0 07/12/24 12:52 Assessment Mental Status: Awake (Alert & Oriented to Patient Baseline) Airway and Respiratory Function: Patent airway with normal (patient baseline) respiratory exam Cardiovascular Function: Hemodynamically Stable Hydration Status: Adequately Hydrated Nausea & Vomiting: No Nausea or Vomiting Pain: Pt. Denies Any Pain Peripheral Nerve Block: Patient did not receive a nerve block
== END 2024-07-12 13:23 | disposition home or self-care (01) ==
LOC: SUR 10:53
PROVIDERS: PCP Nurse Practitioner Family; Visit Provider Surgery
PROC: 0DJD8ZZ Inspection of Lower Intestinal Tract, Via Natural or Artificial Opening Endoscopic (ICD-10-PCS; CPT 45378; principal; 2024-07-12 11:45)
DX: Z12.11 Encounter for screening for malignant neoplasm of colon (principal); K57.30 Diverticulosis of large intestine without perforation or abscess without bleeding; K62.1 Rectal polyp
CPT/HCPCS: 45380; 88305; J2704